=== PATIENT | female | born 1990 | race Caucasian/White ===

== ENCOUNTER 2025-01-07 23:54 | Emergency (ER) | payer MEDICAID ==
[~2025-01-07] VITALS: Ht 170.2 cm; Wt 80.0 kg
[2025-01-08 00:06] VITALS: O2SAT 99
[2025-01-08] MEDS: KETOROLAC 30MG/ML VIAL IM ONE (00:40)
[2025-01-08 00:41] LABS: BASOPHILS % 0.5 % (0.0-2.0); EOSINOPHILS % 0.8 % (0.0-5.0); HEMATOCRIT. 36.9 % (36.0-48.0); HEMOGLOBIN. 12.3 g/dL (12.0-16.0); LYMPHOCYTES % 18.1 % (20.0-50.0); MEAN CORPUSCULAR HEMOGLOBIN 27.8 pg (28.0-32.0); MEAN CORPUSCULAR HGB CONC 33.4 g/dL (31.0-37.0); MEAN CORPUSCULAR VOLUME 83.1 fL (81.0-99.0); MEAN PLATELET VOLUME 9.5 fl (7.4-10.4); MONOCYTES % 8.7 % (2.0-8.0); NEUTROPHILS % 71.9 % (40.0-76.0); PLATELET 238 x1000/uL (130-400); RED BLOOD CELL COUNT 4.45 mill/uL (4.2-5.4); RED CELL DISTRIBUTION WIDTH 13.3 % (11.6-14.6); WHITE BLOOD COUNT 8.3 x1000/uL (4.5-11.0)
[2025-01-08 00:46] LABS: CHLORIDE 106 mEq/L (98-107); POTASSIUM 3.3 mEq/L (3.5-5.1); SODIUM 139 mEq/L (136-145)
[2025-01-08 00:47] LABS: CALCIUM 10.1 mg/dL (8.7-10.4); CARBON DIOXIDE 26 mEq/L (21-32)
[2025-01-08 00:52] LABS: CREATININE 0.6 mg/dL (0.6-1.0); GLUCOSE 109 mg/dL (70-105); UREA NITROGEN BLOOD < 5 mg/dL (9-23)
[2025-01-08 00:54] LABS: ALANINE AMINOTRANSFERASE 10 IU/L (10-49); ALBUMIN 4.7 g/dL (3.2-4.8); ASPARTATE AMINOTRANSFERASE 17 IU/L (<34); BILIRUBIN DIRECT 0.1 mg/dL (<=3.0); BILIRUBIN TOTAL 0.5 mg/dL (0.1-1.0); PROTEIN TOTAL 7.5 g/dL (6.0-8.3)
[2025-01-08] MEDS: POTASSIUM CHLORIDE 20MEQ/PACKET PO ONE (01:36)
[2025-01-08 01:58] LABS: CLARITY URINE CLEAR (CLEAR); COLOR URINE ORANGE (YELLOW); GLUCOSE URINE NEGATIVE (NEGATIVE); KETONES URINE NEGATIVE (NEGATIVE); LEUKOCYTE ESTERASE URINE 1+ (NEGATIVE); NITRITE URINE NEGATIVE (NEGATIVE); OCCULT BLOOD URINE 3+ (NEGATIVE); PROTEIN URINE NEGATIVE (NEGATIVE); SPECIFIC GRAVITY URINE 1.004 (1.005-1.030); UROBILINOGEN URINE 0.2 E.U./dL (0.2-1.0)
[2025-01-08 02:15] LABS: SQUAMOUS EPITHELIAL CELL URINE 2+ /lpf (RARE/1+)
[2025-01-08 02:16] LABS: BACTERIA URINE NONE SEEN
[2025-01-08] MEDS ORDERED: T3 PO (03:28)
[2025-01-08] MEDS ORDERED: TAMS-54 MT (03:28)
[2025-01-08] MEDS ORDERED: SULF1TAB48 MT (03:28)
[2025-01-08] MEDS: TAMSULOSIN HCL 0.4MG SR CAPSULE PO ONE (03:40)
[2025-01-08 03:47] VITALS: BP 145/72; PULSE 83; RESP 17; TEMP 36.6; O2SAT 100
== END 2025-01-08 03:47 | disposition home or self-care (01) ==
LOC: ER 23:54
DX: N21.1 Calculus in urethra (principal); N39.0 Urinary tract infection, site not specified; E87.6 Hypokalemia; D73.89 Other diseases of spleen; Z79.899 Other long term (current) drug therapy
CPT/HCPCS: 99285; 74176; 80076; 80048; 81003; 81025; 85025; 86850; 86900; 86901; 87086; 36415; 96372; J1885